=== PATIENT | male | born 1960 | race Caucasian/White ===

== ENCOUNTER 2019-01-24 18:58 | Emergency (ER) | payer SELFPAY, OTHER ==
[2019-01-24] MEDS: IBUPROFEN 600 MG TAB PO (23:20)
[2019-01-24] MEDS: ONDANSETRON (ODT) 4 MG TAB ODT (23:20)
[2019-01-24] MEDS: morphine LIQ (10 MG/5 ML) CUP PO (23:21)
[2019-01-24] MEDS: ACETAMINOPHEN 325 MG TAB PO (23:21)
== END 2019-01-25 00:49 | disposition home or self-care (01) ==
LOC: FTE 01-25 00:49
DX: M54.5 Low back pain (principal)
CPT/HCPCS: 72131; 72192; 99284-25

== ENCOUNTER 2019-01-31 14:10 | Emergency (ER) | payer SELFPAY | END 2019-01-31 15:39 | disposition home or self-care (01) | LOC: E/R 15:39 | DX: K40.90 Unilateral inguinal hernia, without obstruction or gangrene, not specified as recurrent (principal); M51.06 Intervertebral disc disorders with myelopathy, lumbar region; M51.26 Other intervertebral disc displacement, lumbar region; I25.10 Atherosclerotic heart disease of native coronary artery without angina pectoris; I10 Essential (primary) hypertension | CPT/HCPCS: 99283 ==